=== PATIENT | female | born 1975 | race Two or more races ===

== ENCOUNTER → 2025-03-24 | Emergency (ER) | payer MEDICAID ==
[~2025-03-24] VITALS: Ht 157.5 cm; Wt 60.0 kg
[2025-03-24 19:08] VITALS: BP 122/73; PULSE 87; RESP 16; TEMP 98.1; O2SAT 100
== END | disposition left against medical advice (07) ==
LOC: ER 19:02
DX: H53.8 Other visual disturbances (principal); Z53.21 Procedure and treatment not carried out due to patient leaving prior to being seen by health care provider